=== PATIENT | female | born 1990 | race Caucasian/White ===

== ENCOUNTER 2017-08-18 07:35 | Emergency (ER) | payer BC, MEDICAID ==
--- NOTE | 2017-08-18 07:48 | Emergency Department Record ---
History of Present Illness - General Chief complaint: Lower Extremity Pain Stated complaint: RIGHT LEG BLOOD CLOT Time Seen by Provider: 08/18/17 07:42 Source: Patient Mode of Arrival: Ambulatory Limitations: No limitations - History of Present Illness Initial comments: 27 yo female presents with RLE pain and swelling. The patient states she has a known DVT. She states she was diagnosed with a DVT about 2 months ago. She is on Xarelto. No chest pain, shortness of breath, or cough. No known history of PE. PCP is Dr Terri Turk. She did see a kennel supervisor in the office (Dr Figueroa). Testing for clotting disorders have been negative to this point in time. She was initially on Eliquis but was changed to Xarelto due to side effects of confusion and trouble concentrating. She reports her concerns today are that the leg is not improving. She thinks she was on control at the time of the original DVT diagnosis but stopped the medication. She is not a smoker. Onset/Timin -: Month(s) (2) Location: Right, Lower Leg History of Same: Yes Severity scale (1-10): 5 Quality: Aching Consistency: Constant Improves with: Nothing Worsens with: Nothing Associated Symptoms: Denies other symptoms - Related Data Home Medications Medication Instructions Recorded Confirmed Last Taken Rivaroxaban [Xarelto] 20 mg PO DAILY 08/18/17 08/18/17 Unknown Allergies Allergy/AdvReac Type Severity Reaction Status Date / Time ethinyl estradiol Allergy Intermediate HYPERSENSIT Verified 08/18/17 07:43 [From Sprintec (28)] IVITY norgestimate Allergy Intermediate HYPERSENSIT Verified 08/18/17 07:43 [From Sprintec (28)] IVITY Travel Screening - Travel/Exposure Within Last 30 Days Have you traveled within the last 30 days?: No Review of Systems Constitutional: Denies: Chills, Fever, Malaise, Weakness Eyes: Denies: Eye discharge ENT: Denies: Congestion, Throat pain Respiratory: Denies: Cough Cardiovascular: Denies: Chest pain, Palpitations, Syncope Endocrine: Denies: Fatigue Gastrointestinal: Denies: Abdominal pain, Diarrhea, Nausea, Vomiting Genitourinary: Denies: Dyspareunia, Dysuria, Urgency Musculoskeletal: Reports: As per HPI, Myalgia. Denies: Arthralgia, Back pain, Joint swelling Skin: Denies: Bruising, Change in color, Rash Neurological: Denies: Headache, Numbness, Weakness Psychiatric: Denies: Anxiety Hematological/Lymphatic: Reports: Blood Clots. Denies: Easy bleeding, Easy bruising Past Medical History - SOCIAL HISTORY Smoking Status: Never smoker Alcohol Use: None Drug Use: None - RESPIRATORY Hx Respiratory Disorders: No - CARDIOVASCULAR Hx Cardio Disorders: Yes Hx Deep Vein Thrombosis: Yes (right lower leg.) Comment:: bilateral PE's - NEURO Hx Neuro Disorders: No - GI Hx GI Disorders: No - Hx Genitourinary Disorders: No - ENDOCRINE Hx Endocrine Disorders: No - MUSCULOSKELETAL Hx Musculoskeletal Disorders: No - PSYCH Hx Psych Problems: Yes Comment:: ADD/ADHD - HEMATOLOGY/ONCOLOGY Hx Hematology/Oncology Disorders: No Family Medical History Any Significant Family History?: Yes Hx Cancer: Grandparents Hx Diabetes: Grandparents Hx HTN: Mother, Grandparents Physical Exam - General General Appearance: Alert, Oriented x3, Cooperative, No acute distress Limitations: No limitations - Head Head exam: Atraumatic, Normal inspection - Eye Eye exam: Normal appearance. negative: Conjunctival injection, Scleral icterus - ENT ENT exam: Normal exam Ear exam: Normal external inspection Nasal Exam: Normal inspection Mouth exam: Normal external inspection - Neck Neck exam: Normal inspection - Respiratory Respiratory exam: Normal lung sounds bilaterally. negative: Respiratory distress - Cardiovascular Cardiovascular Exam: Regular rate, Normal rhythm, Normal heart sounds Peripheral Pulses: 2+: Radial (R), Radial (L) - Rectal Rectal exam: Deferred - exam: Deferred - Extremities Extremities exam: Calf tenderness, Full ROM, Normal capillary refill, Pedal edema (Right calf mild swelling, mild tenderness, brisk CR, full ROM, no abnormal warmth or redness, +2 DP pulses). negative: Normal inspection - Back Back exam: Reports: Normal inspection, Full ROM. Denies: Muscle spasm, Rash noted, Tenderness - Neurological Neurological exam: Alert, Normal gait, Oriented X3, Reflexes normal - Psychiatric Psychiatric exam: Normal affect, Normal mood. negative: Agitated, Anxious - Skin Skin exam: Dry, Intact, Normal color, Warm. negative: Cyanosis, Diaphoretic, Erythema, Mottled Course Vital Signs 08/18/17 07:38 Temperature 98.0 F Pulse Rate 80 Respiratory 18 Rate Blood Pressure 126/90 Pulse Ox 99 - Reevaluation(s) Reevaluation #1: EMR reviewed at [facility]. No current information on her DVT. [facility] [place] will be contacted as the patient thinks she might of had tests there. 08/18/17 07:48 08/18/17 08:16 [facility] was contacted. No records of visit or admission [facility] reviewed. No records of US or admissions [facility] records confirm a May admission. Records requested. 08/18/17 08:22 Venous doppler reviewed from 06/24/17 REIV chronic non occluding, RCFV Chronic non occluding, RDFV + RSFV Proximal chronic non occluding. RSFV Distal + Popliteal + RPTV + RPV + R gastrocnemius acute occluding. 08/18/17 08:41 No acute changes on the CBC,BMP The HCG is negative 08/18/17 09:38 The venous doppler report was reviewed. No new DVT. The study today compared to the report from 06/24/17 was unchanged without extension. 08/18/17 09:49 I SW the patient's PCP Dr Turk. We reviewed the results. No new acute DVT or extension. The findings are chronic. The patient will restart her compression hose that she had stopped. Dr Turk will see her in the office this week for a recheck. She will evaluate for possible outpatient vascular surgery referral as well for likely chronic venous insufficiency from her chronic DVT. Continue Xarelto. No clinical findings to suggest PE. NO tachycardia, hypoxia, cough, shortness of breath, chest pain. 08/18/17 10:33 Off work today and tomorrow to avoid prolonged standing that is required at her job Medical Decision Making - Lab Data Result diagrams: 08/18/17 07:55 08/18/17 07:55 Disposition Disposition: Discharge Clinical Impression: Venous insufficiency DVT (deep venous thrombosis) Qualifiers: DVT location: lower extremity Affected thrombotic vein of extremity: unspecified vein of extremity Chronicity: chronic Laterality: right Qualified Code(s): I82.501 - Chronic embolism and thrombosis of unspecified deep veins of right lower extremity Disposition: Home, Self-Care Condition: (1) Good Instructions: Leg Edema (ED), Deep Vein Thrombosis Prevention (ED) Additional Instructions: Restart using your compression hose to help with the swelling Call today to see Dr Turk in the office this week to recheck your swelling Continue your Xarelto the same as you have been taking it Forms: Patient Portal Access Time of Disposition: 09:53 Quality - Quality Measures Quality Measures: N/A - Blood Pressure Screening Does Patient Have Any of the Following: No Blood Pressure Classification: Normal BP Reading Systolic Measurement: 112 Diastolic Measurement: 78 Screening for High Blood Pressure: < Normal BP, F/U Not Required > [G8783] Pre-Hypertensive Follow-up Interventions: Referral to alternative/primary care provider.
[2017-08-18 08:07] LABS: BASO % 0.3 % (0-6); EOS % 1.9 % (0-6); GRAN % 63.1 % (47-80); HEMATOCRIT 43.8 % (35.0-47.0); HEMOGLOBIN 14.1 gm/dl (11.6-16.0); LYMPH % 26.8 % (16-45); MEAN CELL VOLUME 87.4 fl (81-97); MEAN CORPUSCULAR HEMOGLOBIN 28.1 pg (27-33); MEAN CORPUSCULAR HGB CONC 32.2 g/dl (32-36); MEAN PLATELET VOLUME 9.8 fl (7.4-10.4); MONO % 7.9 % (0-9); PLATELET COUNT 305 K/uL (130-400); RED BLOOD COUNT 5.01 M/uL (3.80-5.40); RED CELL DISTRIBUTION WIDTH 13.7 % (11.5-14.5); WHITE BLOOD COUNT W/O DIFF 6.7 K/uL (4.2-12.2)
[2017-08-18 08:17] LABS: INR 0.9; PARTIAL THROMBOPLASTIN TIME 23.8 SECONDS (24.5-39.1); PROTHROMBIN TIME (PATIENT) 10.2 SECONDS (9.5-12.1)
[2017-08-18 08:19] LABS: BLOOD UREA NITROGEN 14 mg/dL (6-20); CREATININE 0.7 mg/dL (0.5-0.9); EST GLOMERULAR FILTRATION RATE > 60 mL/min
[2017-08-18 08:22] LABS: GLUCOSE,RANDOM 107 mg/dL (74-109)
--- NOTE | 2017-08-18 13:19 | US VENOUS DOPPLER REPORT ---
EXAM: RIGHT LOWER EXTREMITY DUPLEX VENOUS ULTRASOUND HISTORY: CHRONIC PAIN. TECHNIQUE: Transverse and longitudinal sonographic images of the right lower extremity deep venous system were obtained. Comparison: Comparison is made with an outside ultrasound report dated . FINDINGS: Visible thrombus formation throughout the right lower extremity deep venous system, with lack of normal compression and augmentation consistent with DVT. Similar findings were described previously. Partial visualization of thrombus formation in the common femoral vein as well. Doppler and spectral analysis with color flow is utilized. Lack of normal waveforms. IMPRESSION: SIMILAR TO THE PREVIOUSLY DESCRIBED REPORT, THERE IS DIFFUSE RIGHT LOWER EXTREMITY DVT. JOB NUMBER: [id number] [facility]
== END 2017-08-18 10:11 | disposition home or self-care (01) ==
LOC: ER 07:35
DX: I82.501 Chronic embolism and thrombosis of unspecified deep veins of right lower extremity (principal); I87.2 Venous insufficiency (chronic) (peripheral); Z79.01 Long term (current) use of anticoagulants
CPT/HCPCS: 80048; 84703; 85025; 85610; 85730; 99283; 99284

== ENCOUNTER 2017-12-22 15:51 | Emergency (ER) | payer BC ==
[2017-12-22] MEDS ORDERED: ACETAMINOPHEN 500 MG TABLET PO ONE (16:00)
--- NOTE | 2017-12-22 16:03 | Emergency Department Record ---
History of Present Illness - General Stated complaint: LT FOOT TOE PAIN Time Seen by Provider: 12/22/17 15:56 Source: Patient Mode of Arrival: Ambulatory Limitations: No limitations - History of Present Illness Initial comments: 27 yo female presents with left foot pain. In the dark early this morning she accidentally kicked a wall. She has left 4th toe and foot pain. She has local bruising. Nail intact. Skin intact. MD Complaint: Joint pain -: Hour(s) (8) Location: Foot -: Yes Arthralgia Radiation: Distal Quality: Aching Consistency: Constant Improves with: Immobilization Worsens with: Palpation, Rest, Walking Associated Symptoms: Denies other symptoms - Related Data Allergies Allergy/AdvReac Type Severity Reaction Status Date / Time ethinyl estradiol Allergy Intermediate HYPERSENSIT Verified 08/18/17 07:43 [From Sprintec (28)] IVITY norgestimate Allergy Intermediate HYPERSENSIT Verified 08/18/17 07:43 [From Sprintec ()] IVITY Review of Systems Constitutional: Denies: Chills, Fever, Malaise, Weakness Eyes: Denies: Eye discharge ENT: Denies: Congestion, Throat pain Respiratory: Denies: Cough Cardiovascular: Denies: Chest pain Endocrine: Denies: Fatigue Gastrointestinal: Denies: Abdominal pain, Diarrhea, Nausea, Vomiting Genitourinary: Denies: Dysuria, Urgency Musculoskeletal: Reports: As per HPI, Arthralgia Skin: Reports: As per HPI, Bruising Neurological: Denies: Headache Psychiatric: Denies: Anxiety Hematological/Lymphatic: Reports: Blood Clots, Easy bleeding. Denies: Easy bruising Past Medical History - SOCIAL HISTORY Smoking Status: Never smoker Drug Use: None - RESPIRATORY Hx Respiratory Disorders: No - CARDIOVASCULAR Hx Cardio Disorders: Yes Hx Deep Vein Thrombosis: Yes (right lower leg.) Comment:: bilateral PE's - NEURO Hx Neuro Disorders: No - GI Hx GI Disorders: No - Hx Genitourinary Disorders: No - ENDOCRINE Hx Endocrine Disorders: No - MUSCULOSKELETAL Hx Musculoskeletal Disorders: No - PSYCH Hx Psych Problems: Yes Comment:: ADD/ADHD - HEMATOLOGY/ONCOLOGY Hx Hematology/Oncology Disorders: No Family Medical History Hx Cancer: Grandparents Hx Diabetes: Grandparents Hx HTN: Mother, Grandparents Physical Exam - General General Appearance: Alert, Oriented x3, Cooperative, No acute distress Limitations: No limitations - Head Head exam: Atraumatic, Normal inspection - Eye Eye exam: Normal appearance, Conjunctival injection - ENT ENT exam: Normal exam Ear exam: Normal external inspection Nasal Exam: Normal inspection Mouth exam: Normal external inspection - Neck Neck exam: Normal inspection - Respiratory Respiratory exam: Normal lung sounds bilaterally. negative: Respiratory distress - Cardiovascular Cardiovascular Exam: Regular rate, Normal rhythm, Normal heart sounds Peripheral Pulses: 2+: Dorsalis Pedis (L) - Rectal Rectal exam: Deferred - exam: Deferred - Extremities Extremities exam: Joint swelling, Normal capillary refill, Tenderness. negative : Calf tenderness, Pedal edema Image of Feet: 1 - bruising, tenderness, normal alignment, intact nail. - Back Back exam: Reports: Full ROM - Neurological Neurological exam: Alert, Oriented X3 - Psychiatric Psychiatric exam: Normal affect, Normal mood - Skin Skin exam: Dry, Intact, Normal color, Warm Course - Reevaluation(s) Reevaluation #1: The prelim toe XR was reviewed. No acute fracture or dislocation 12/22/17 16:30 12/22/17 16:45 Final XR read was negative for acute process Disposition Disposition: Discharge Clinical Impression: Contusion of foot, left Disposition: Home, Self-Care Condition: (1) Good Instructions: Foot Contusion (ED) Additional Instructions: Keep the foot elevated as much as possible Apply ice for 15 minutes 3-4 times daily. Use a wash cloth to prevent direct contact of the ice on the skin Recheck the foot with your doctor in one week if the pain continues Time of Disposition: 16:46 Quality - Quality Measures Quality Measures: N/A - Blood Pressure Screening Does Patient Have Any of the Following: No Blood Pressure Classification: Normal BP Reading Systolic Measurement: 99 Diastolic Measurement: 64 Screening for High Blood Pressure: < Normal BP, F/U Not Required > [G8783]
== END 2017-12-22 16:54 | disposition home or self-care (01) ==
LOC: ER 15:51
DX: S90.122A Contusion of left lesser toe(s) without damage to nail, initial encounter (principal); S90.32XA Contusion of left foot, initial encounter; W22.01XA Walked into wall, initial encounter; Y92.009 Unspecified place in unspecified non-institutional (private) residence as the place of occurrence of the external cause
CPT/HCPCS: 99283

== ENCOUNTER 2018-02-16 00:29 | Emergency (ER) | payer BC, MEDICAID ==
--- NOTE | 2018-02-16 00:41 | Emergency Department Record ---
History of Present Illness - General Chief complaint: Flu Like Symptoms Stated complaint: FLU LIKE SYMPTOMS Time Seen by Provider: 02/16/18 00:31 Source: Patient Mode of Arrival: Ambulatory Limitations: No limitations - History of Present Illness Initial comments: 27 yo female presents to ED for evaluation of cough and congestion symptoms for the past 2 days. Patient reports recent fever (100) yesterdya, has been taking Tylenol at home for her symptoms. Patient denies health problems at her baseline. MD Complaint: Generalized weakness Onset/Timin -: Days(s) Location: Generalized Severity: Moderate Consistency: Constant Improves with: None Worsens with: None Context: Recent illness Associated Symptoms: Denies other symptoms - [place] Coma Scale Eye Response: (4) Open spontaneously Motor Response: (6) Obeys commands Verbal Response: (5) Oriented [place] Total: 15 - Related Data Allergies Allergy/AdvReac Type Severity Reaction Status Date / Time ethinyl estradiol Allergy Intermediate HYPERSENSIT Verified 08/18/17 07:43 [From Sprintec (28)] IVITY norgestimate Allergy Intermediate HYPERSENSIT Verified 08/18/17 07:43 [From Sprintec (28)] IVITY Review of Systems Constitutional: Reports: Fever, Malaise. Denies: Chills, Night sweats Eyes: Denies: Eye discharge, Eye pain ENT: Reports: Congestion. Denies: Ear pain, Epistaxis Respiratory: Reports: Cough. Denies: Dyspnea Cardiovascular: Denies: Chest pain, Dyspnea on exertion Endocrine: Reports: Fatigue. Denies: Heat or cold intolerance Gastrointestinal: Denies: Abdominal pain, Nausea, Vomiting Genitourinary: Denies: Incontinence, Retention Musculoskeletal: Denies: Arthralgia, Back pain Skin: Denies: Bruising, Change in color Neurological: Denies: Abnormal gait, Confusion, Headache, Seizure Psychiatric: Denies: Anxiety Hematological/Lymphatic: Denies: Anemia, Blood Clots Past Medical History - SOCIAL HISTORY Smoking Status: Never smoker Drug Use: None - RESPIRATORY Hx Respiratory Disorders: No - CARDIOVASCULAR Hx Cardio Disorders: Yes Hx Deep Vein Thrombosis: Yes (right lower leg.) Comment:: bilateral PE's - NEURO Hx Neuro Disorders: No - GI Hx GI Disorders: No - Hx Genitourinary Disorders: No - ENDOCRINE Hx Endocrine Disorders: No - MUSCULOSKELETAL Hx Musculoskeletal Disorders: No - PSYCH Hx Psych Problems: Yes Comment:: ADD/ADHD - HEMATOLOGY/ONCOLOGY Hx Hematology/Oncology Disorders: No Family Medical History Hx Cancer: Grandparents Hx Diabetes: Grandparents Hx HTN: Mother, Grandparents Physical Exam - General General Appearance: Alert, Oriented x3, Cooperative, Mild distress Limitations: No limitations - Head Head exam: Atraumatic, Normocephalic, Normal inspection Head exam detail: negative: Abrasion, Contusion, Hyatt's sign, General tenderness, Hematoma, Laceration - Eye Eye exam: Normal appearance. negative: Conjunctival injection, Periorbital swelling, Periorbital tenderness, Scleral icterus - ENT Ear exam: negative: Auricular hematoma, Auricular trauma Nasal Exam: negative: Active bleeding, Discharge, Dried blood, Foreign body Mouth exam: negative: Drooling, Laceration, Muffled voice, Tongue elevation - Neck Neck exam: Normal inspection. negative: Meningismus, Tenderness - Respiratory Respiratory exam: Normal lung sounds bilaterally. negative: Rales, Respiratory distress, Rhonchi, Stridor - Cardiovascular Cardiovascular Exam: Regular rate, Normal rhythm, Normal heart sounds - GI/Abdominal GI/Abdominal exam: Soft. negative: Rebound, Rigid, Tenderness - Rectal Rectal exam: Deferred - exam: Deferred - Extremities Extremities exam: Normal inspection. negative: Calf tenderness, Pedal edema, Tenderness - Back Back exam: Denies: CVA tenderness (R), CVA tenderness (L) - Neurological Neurological exam: Alert, Normal gait, Oriented X3 - Psychiatric Psychiatric exam: Normal affect, Normal mood - Skin Skin exam: Normal color. negative: Abrasion Type of lesion: negative: abrasion Course Vital Signs 02/16/18 00:35 Temperature 98.3 F Pulse Rate [ 93 H Pulse Ox Probe] Respiratory 24 Rate Blood Pressure 128/93 [Left Arm] Pulse Ox 99 - Reevaluation(s) Reevaluation #1: 02/16/18 00:54 Influenza: Negative CXR: No acute process Patient was updated on all results, all questions were answered at the time of discharge. Patient appears stable for discharge with symptomatic care. Disposition Disposition: Discharge Clinical Impression: Viral syndrome Disposition: Home, Self-Care Condition: (2) Stable Instructions: Viral Syndrome (ED) Additional Instructions: Return to ED if your symptoms worsen or if you have any concerns. Tylenol/Motrin as directed. Follow-up with your family doctor in 3-5 days as directed. Forms: Patient Portal Access Time of Disposition: 00:58 Quality - Quality Measures Quality Measures: N/A - Blood Pressure Screening Does Patient Have Any of the Following: No Blood Pressure Classification: Hypertensive Reading Systolic Measurement: 128 Diastolic Measurement: 93 Screening for High Blood Pressure: < First Hypertensive BP, F/U Documented > [ G8950] First Hypertensive Follow-up Interventions: Referral to alternative/primary care provider.
[2018-02-16 00:52] LABS: INFLUENZA A NEGATIVE (NEGATIVE); INFLUENZA B NEGATIVE (NEGATIVE)
--- NOTE | 2018-02-18 12:43 | RADIOLOGY REPORT ---
EXAM: CHEST, TWO VIEWS HISTORY: CHEST PAIN. TECHNIQUE: PA and lateral views of the chest were obtained. Comparison: Chest radiograph 04/01/16. FINDINGS: The cardiac silhouette is within normal size limits. Relatively low inspiratory lung volumes result in slight accentuation of the pulmonary vasculature. No focal pulmonary consolidation. No pleural effusion or pneumothorax. IMPRESSION: NO DEFINITE ACUTE LUNG FINDINGS. JOB NUMBER: [id number] [facility]
== END 2018-02-16 01:06 | disposition home or self-care (01) ==
LOC: ER 00:29
DX: B34.9 Viral infection, unspecified (principal); R05 Cough; R53.1 Weakness
CPT/HCPCS: 71046; 87400; 99283

== ENCOUNTER 2018-05-22 13:33 | Emergency (ER) | payer BC, MEDICAID ==
[2018-05-22] MEDS ORDERED: ONDANSETRON 4 MG ODT TABLET SL ONE (13:55)
--- NOTE | 2018-05-22 14:01 | Emergency Department Record ---
History of Present Illness - General Chief Complaint: Dizziness Stated Complaint: EAR PAIN AND DIZZY Time Seen by Provider: 05/22/18 13:47 Source: Patient Mode of Arrival: Ambulatory Limitations: No limitations - History of Present Illness Initial Comments: The patient woke up this AM feeling "dizzy" like the room is spinning when she moves her head. She has had some ear discomfort and loose stools with mild nasal congestion. The patient denies any fever, ALEMAN, ST, cough, or SOB. The dizziness is described as feeling off balance when it gets bad. She has had mild nausea at times also. The patient presently denies any significant dizziness and has had no weakness, visual changes or vomiting. MD Complaint: Dizziness Onset/Timin -: Hour(s) Timing: Awoke with symptoms Description: Difficulty walking, Lightheadedness, Nausea, Off-balance, "Room spinning" History of Same: No History of Trauma: No Improves With: Rest Worsens With: Movement - [place] Coma Scale Eye Response: (4) Open spontaneously Motor Response: (6) Obeys commands Verbal Response: (5) Oriented Yoselyn Total: 15 - Related Data Previous Rx's Medication Instructions Recorded Ondansetron [Zofran Odt] 4 mg SL .Q4-6H PRN #12 tab.rapdis 05/22/18 Allergies Allergy/AdvReac Type Severity Reaction Status Date / Time ethinyl estradiol Allergy Intermediate HYPERSENSIT Verified 05/22/18 13:58 [From Sprintec (28)] IVITY norgestimate Allergy Intermediate HYPERSENSIT Verified 05/22/18 13:58 [From Sprintec (28)] IVITY Travel Screening - Travel/Exposure Within Last 30 Days Have you traveled within the last 30 days?: No - Travel/Exposure Within Last Year Have you traveled outside the [place] in the last year?: No - Additonal Travel Details Have you been exposed to anyone with a communicable illness?: No Review of Systems Constitutional: Denies: Chills, Fever Eyes: Denies: Eye discharge ENT: Reports: Congestion Respiratory: Denies: Cough, Dyspnea Cardiovascular: Denies: Arrhythmia Past Medical History - SOCIAL HISTORY Smoking Status: Never smoker Alcohol Use: None Drug Use: None - RESPIRATORY Hx Respiratory Disorders: No - CARDIOVASCULAR Hx Cardio Disorders: Yes Hx Deep Vein Thrombosis: Yes (right lower leg.) Comment:: bilateral PE's - NEURO Hx Neuro Disorders: No - GI Hx GI Disorders: No - Hx Genitourinary Disorders: No - ENDOCRINE Hx Endocrine Disorders: No - MUSCULOSKELETAL Hx Musculoskeletal Disorders: No - PSYCH Hx Psych Problems: Yes Hx Depression: Yes Comment:: ADD/ADHD - HEMATOLOGY/ONCOLOGY Hx Hematology/Oncology Disorders: No Family Medical History Any Significant Family History?: Yes Hx Cancer: Grandparents Hx Diabetes: Grandparents Hx HTN: Mother, Grandparents Physical Exam - General General Appearance: Alert, Oriented x3, Cooperative, No acute distress - Head Head exam: Atraumatic, Normocephalic, Normal inspection - Eye Eye exam: Normal appearance, PERRL, EOMI, Nystagmus (to the R mainly.) - ENT ENT exam: Normal exam, Mucous membranes moist, Normal external ear exam, Normal orophraynx, TM's normal bilaterally Throat exam: Normal inspection. negative: Tonsillar erythema, Tonsillar exudate - Neck Neck exam: Normal inspection, Full ROM. negative: Lymphadenopathy, Tenderness - Respiratory Respiratory exam: Normal lung sounds bilaterally. negative: Respiratory distress - Cardiovascular Cardiovascular Exam: Regular rate, Normal rhythm, Normal heart sounds. negative : Diastolic murmur, Systolic murmur - GI/Abdominal GI/Abdominal exam: Soft, Normal bowel sounds. negative: Tenderness - Extremities Extremities exam: Normal inspection, Full ROM, Normal capillary refill. negative: Tenderness - Neurological Neurological exam: Alert, CN II-XII intact, Normal gait, Oriented X3, Other ( Neg Drift and [place].). negative: Abnormal gait, Altered, Motor sensory deficit - Psychiatric Psychiatric exam: negative: Anxious - Skin Skin exam: negative: Rash Course Vital Signs 05/22/18 13:39 Temperature 97.9 F Pulse Rate 71 Respiratory 20 Rate Blood Pressure 136/91 Pulse Ox 97 - Reevaluation(s) Reevaluation #1: The patient is feeling better after the Zofran and is drinking fluids well. I did discuss the neg HCG with the patient and the need for F/U if not better. 05/22/18 14:21 Medical Decision Making - Data Complexity MDM Data: Labs Ordered and/or Reviewed (UCG: Neg.) Disposition Disposition: Discharge Clinical Impression: Acute viral syndrome Disposition: Home, Self-Care Condition: (2) Stable Instructions: Dizziness (ED) Additional Instructions: Please take your home Antivert as directed and use the Zofran for nausea. Please use Tylenol for body aches and see your family doctor next week if not better. Return to the ER for any worsening symptoms. Prescriptions: Ondansetron [Zofran Odt] 4 mg SL .Q4-6H PRN #12 tab.rapdis PRN Reason: Nausea Forms: Patient Portal Access Time of Disposition: 14:23 Quality - Quality Measures Quality Measures: N/A - Blood Pressure Screening View Details: Yes Does Patient Have Any of the Following: No Blood Pressure Classification: Hypertensive Reading Systolic Measurement: 136 Diastolic Measurement: 91 Screening for High Blood Pressure: < First Hypertensive BP, F/U Documented > [ G8950] First Hypertensive Follow-up Interventions: Referral to alternative/primary care provider.
== END 2018-05-22 14:33 | disposition home or self-care (01) ==
LOC: ER 13:33
DX: B34.9 Viral infection, unspecified (principal); R42 Dizziness and giddiness; R11.0 Nausea; R19.7 Diarrhea, unspecified
CPT/HCPCS: 81025; 99283

== ENCOUNTER 2018-08-24 13:08 | Emergency (ER) | payer MEDICAID ==
--- NOTE | 2018-08-24 13:18 | Emergency Department Record ---
History of Present Illness - General Chief complaint: ENT Stated complaint: sore throat Time Seen by Provider: 08/24/18 13:12 Source: Patient Mode of Arrival: Ambulatory Limitations: No limitations - History of Present Illness Initial comments: 28 yo female presents with a sore throat for one week. It hurts more on the left than right. She is up to date on immunizations. She still has tonsils. No fever. She has pain with swallowing. Mild cough. No ear pain. No redness to the skin. No headaches. MD complaint: Sore throat -: Week(s) (1) Location: Throat Severity: Moderate Quality: Aching Consistency: Constant Improves with: None Worsens with: Swallowing Associated Symptoms: Cough, Sore throat - Related Data Previous Rx's Medication Instructions Recorded Amoxicillin 500Mg Capsule [Amoxil] 500 mg PO TID #30 tab 08/24/18 Allergies Allergy/AdvReac Type Severity Reaction Status Date / Time ethinyl estradiol Allergy Intermediate HYPERSENSIT Unverified 08/16/18 10:41 [From Sprintec (28)] IVITY norgestimate Allergy Intermediate HYPERSENSIT Unverified 08/16/18 10:41 [From Sprintec (28)] IVITY Review of Systems Constitutional: Denies: Chills, Fever, Malaise, Night sweats, Weakness Eyes: Denies: Eye discharge ENT: Reports: Congestion, Throat pain. Denies: Dental pain, Ear pain, Epistaxis Respiratory: Reports: Cough. Denies: Dyspnea, Hemoptysis, Stridor, Wheezes Cardiovascular: Denies: Chest pain, Palpitations, Syncope Endocrine: Denies: Fatigue, Polydipsia, Polyuria Gastrointestinal: Denies: Abdominal pain, Diarrhea, Nausea, Vomiting Genitourinary: Denies: Discharge Musculoskeletal: Denies: Arthralgia, Back pain, Joint swelling, Myalgia Skin: Denies: Bruising, Change in color, Rash Neurological: Denies: Headache Psychiatric: Denies: Anxiety Hematological/Lymphatic: Reports: Swollen glands (Left). Denies: Easy bleeding , Easy bruising Past Medical History - SOCIAL HISTORY Smoking Status: Never smoker Drug Use: None - RESPIRATORY Hx Respiratory Disorders: No - CARDIOVASCULAR Hx Cardio Disorders: Yes Hx Deep Vein Thrombosis: Yes (right lower leg.) Comment:: bilateral PE's - NEURO Hx Neuro Disorders: No - GI Hx GI Disorders: No - Hx Genitourinary Disorders: No - ENDOCRINE Hx Endocrine Disorders: No - MUSCULOSKELETAL Hx Musculoskeletal Disorders: No - PSYCH Hx Psych Problems: Yes Hx Depression: Yes Comment:: ADD/ADHD - HEMATOLOGY/ONCOLOGY Hx Hematology/Oncology Disorders: No Family Medical History Hx Cancer: Grandparents Hx Diabetes: Grandparents Hx HTN: Mother, Grandparents Physical Exam - General General Appearance: Alert, Oriented x3, Cooperative, No acute distress Limitations: No limitations - Head Head exam: Atraumatic, Normal inspection - Eye Eye exam: Normal appearance, PERRL. negative: Conjunctival injection, Scleral icterus - ENT ENT exam: Normal exam, Mucous membranes dry, Mucous membranes moist, TM's normal bilaterally. negative: Normal orophraynx Ear exam: Normal external inspection Nasal Exam: Normal inspection Mouth exam: Normal external inspection Teeth exam: Normal inspection Throat exam: Tonsillar erythema, Tonsillomegaly, Other (tonsil erythema on the left with swelling, no abscess). negative: Normal inspection, Tonsillar exudate , R peritonsillar mass, L peritonsillar mass - Neck Neck exam: Normal inspection, Lymphadenopathy (mild left anterior cervical) - Respiratory Respiratory exam: Normal lung sounds bilaterally. negative: Accessory muscle use, Chest wall tenderness, Decreased breath sounds, Respiratory distress, Rhonchi, Stridor, Wheezes - Cardiovascular Cardiovascular Exam: Regular rate, Normal rhythm, Normal heart sounds - GI/Abdominal GI/Abdominal exam: Soft. negative: Tenderness - Rectal Rectal exam: Deferred - exam: Deferred - Extremities Extremities exam: negative: Tenderness - Neurological Neurological exam: Alert, Oriented X3 - Psychiatric Psychiatric exam: Normal affect, Normal mood - Skin Skin exam: Dry, Intact, Normal color, Warm Course - Reevaluation(s) Reevaluation #1: The examination is consistent with left sided tonsillitis without abscess 08/24/18 13:18 08/24/18 13:20 The vitals were reviewed. No acute significant abnormalities Disposition Disposition: Discharge Clinical Impression: Tonsillitis Disposition: Home, Self-Care Condition: (1) Good Instructions: Tonsillitis (ED) Additional Instructions: Call your doctor for the next available follow up appointment Return to the ER for a recheck if worse, any new concerns or questions Take the prescriptions provided as directed Review this ER visit and the tests performed with your family doctor Prescriptions: Amoxicillin 500Mg Capsule [Amoxil] 500 mg PO TID #30 tab Forms: Patient Portal Access Time of Disposition: 13:19 Quality - Quality Measures Quality Measures: N/A - Blood Pressure Screening Does Patient Have Any of the Following: No Blood Pressure Classification: Pre-Hypertensive BP Reading Systolic Measurement: 116 Diastolic Measurement: 88 Screening for High Blood Pressure: < Pre-Hypertensive BP, F/U Documented > [ G8950] Pre-Hypertensive Follow-up Interventions: Referral to alternative/primary care provider.
== END 2018-08-24 13:30 | disposition home or self-care (01) ==
LOC: ER 13:08
DX: J03.90 Acute tonsillitis, unspecified (principal)
CPT/HCPCS: 99282

== ENCOUNTER 2018-09-23 21:11 | Emergency (ER) | payer MEDICAID ==
[2018-09-23] MEDS ORDERED: IBUPROFEN 600 MG TABLET PO ONE (21:44)
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
--- NOTE | 2018-09-25 09:19 | RADIOLOGY REPORT ---
EXAM: HAND, RIGHT 3 VIEWS HISTORY: INJURY WHILE PLAYING WITH DOG, PAIN NEAR THE SMALL FINGER. TECHNIQUE: Three views of the right hand. COMPARISON: None. FINDINGS: Acute mildly comminuted fracture of the small finger metacarpal distal diaphysis approximately 1-2 mm volar displacement of the distal fragment with mild volar angulation. No additional fractures are seen. No evidence of dislocation. Soft tissue swelling in the ulnar side of the hand. IMPRESSION: ACUTE COMMINUTED MILDLY DISPLACED AND ANGULATED FRACTURE OF THE SMALL FINGER METACARPAL. JOB NUMBER: [id number] [facility]
== END 2018-09-23 22:09 | disposition home or self-care (01) ==
LOC: ER 21:11
DX: S62.336A Displaced fracture of neck of fifth metacarpal bone, right hand, initial encounter for closed fracture (principal); W22.09XA Striking against other stationary object, initial encounter; Y93.K9 Activity, other involving animal care
CPT/HCPCS: 99283

== ENCOUNTER 2018-11-09 20:01 | Emergency (ER) | payer MEDICAID ==
--- NOTE | 2018-11-09 20:17 | Emergency Department Record ---
History of Present Illness - General Chief complaint: Rash Stated complaint: RASH Time Seen by Provider: 11/09/18 20:15 Source: Patient Mode of Arrival: Ambulatory Limitations: No limitations - History of Present Illness Initial comments: 28 yo female presents to ED for evaluation of diffuse rash to the extremities for the past 1 days. Patient reports mild itching symptoms, denies fevers, chills, or recent illness. Patient denies recent ill contacts with rash symptoms. Patient denies health problems at her baseline, has not taken anything for her rash symptoms prior to evaluation. MD complaint: Rash Onset/Timin -: Days(s) Location: RUE, LLE, RLE Quality: Other (Itching) Consistency: Constant Improves with: None Worsens with: None Context: None Associated symptoms: Denies other symptoms Treatments Prior to Arrival: None - Related Data Previous Rx's Medication Instructions Recorded Ketoconazole 30 gm TP BID #1 cream..g. 11/09/18 Allergies Allergy/AdvReac Type Severity Reaction Status Date / Time ethinyl estradiol Allergy Intermediate HYPERSENSIT Unverified 09/02/18 14:00 [From Sprintec (28)] IVITY norgestimate Allergy Intermediate HYPERSENSIT Unverified 09/02/18 14:00 [From Sprintec (28)] IVITY Travel Screening - Travel/Exposure Within Last 30 Days Have you traveled within the last 30 days?: No Review of Systems Constitutional: Denies: Chills, Fever, Malaise, Night sweats Eyes: Denies: Eye discharge, Eye pain, Photophobia ENT: Denies: Congestion, Ear pain, Epistaxis Respiratory: Denies: Cough, Dyspnea Cardiovascular: Denies: Chest pain, Dyspnea on exertion Endocrine: Denies: Fatigue, Heat or cold intolerance Gastrointestinal: Denies: Abdominal pain, Nausea, Vomiting Genitourinary: Denies: Incontinence, Retention Musculoskeletal: Denies: Arthralgia, Back pain Skin: Reports: Rash. Denies: Bruising, Change in color Neurological: Denies: Abnormal gait, Confusion, Headache, Seizure Psychiatric: Denies: Anxiety Hematological/Lymphatic: Denies: Anemia, Blood Clots Past Medical History - SOCIAL HISTORY Smoking Status: Never smoker Alcohol Use: None Drug Use: None - RESPIRATORY Hx Respiratory Disorders: No - CARDIOVASCULAR Hx Cardio Disorders: Yes Hx Deep Vein Thrombosis: Yes (right lower leg.) Comment:: bilateral PE's - NEURO Hx Neuro Disorders: No - GI Hx GI Disorders: No - Hx Genitourinary Disorders: No - ENDOCRINE Hx Endocrine Disorders: No - MUSCULOSKELETAL Hx Musculoskeletal Disorders: No - PSYCH Hx Psych Problems: Yes Hx Depression: Yes Comment:: ADD/ADHD - HEMATOLOGY/ONCOLOGY Hx Hematology/Oncology Disorders: No Family Medical History Any Significant Family History?: Yes Hx Cancer: Grandparents Hx Diabetes: Grandparents Hx HTN: Mother, Grandparents Physical Exam - General General Appearance: Alert, Oriented x3, Cooperative, No acute distress Limitations: No limitations - Head Head exam: Atraumatic, Normocephalic, Normal inspection Head exam detail: negative: Abrasion, Contusion, Hyatt's sign, General tenderness, Hematoma, Laceration - Eye Eye exam: Normal appearance. negative: Conjunctival injection, Periorbital swelling, Periorbital tenderness, Scleral icterus - ENT Ear exam: negative: Auricular hematoma, Auricular trauma Nasal Exam: negative: Active bleeding, Discharge, Dried blood, Foreign body Mouth exam: negative: Drooling, Laceration, Muffled voice, Tongue elevation - Neck Neck exam: Normal inspection. negative: Meningismus, Tenderness - Respiratory Respiratory exam: Normal lung sounds bilaterally. negative: Rales, Respiratory distress, Rhonchi, Stridor - Cardiovascular Cardiovascular Exam: Regular rate, Normal rhythm, Normal heart sounds - GI/Abdominal GI/Abdominal exam: Soft. negative: Rebound, Rigid, Tenderness - Rectal Rectal exam: Deferred - exam: Deferred - Extremities Extremities exam: Normal inspection, Other (Several areas of raised, magno-like appearance to the left thigh, right/left upper extremities on examination). negative: Calf tenderness, Pedal edema, Tenderness - Back Back exam: Denies: CVA tenderness (R), CVA tenderness (L) - Neurological Neurological exam: Alert, Normal gait, Oriented X3 - Psychiatric Psychiatric exam: Normal affect, Normal mood - Skin Skin exam: Normal color. negative: Abrasion Type of lesion: negative: abrasion Course Vital Signs 11/09/18 20:03 Temperature 98.8 F Pulse Rate 79 Respiratory 20 Rate Blood Pressure 124/86 Pulse Ox 98 - Reevaluation(s) Reevaluation #1: 11/09/18 20:21 Examination appears c/w ringworm Will treat with Ketoconazole for 4 week duration. Patient appears stable for discharge at this time. Disposition Disposition: Discharge Clinical Impression: Ringworm Disposition: Home, Self-Care Condition: (2) Stable Additional Instructions: Return to ED if your symptoms worsen or if you have any concerns. Ketoconazole as directed. Follow-up with your family doctor in 3-5 days as directed. Prescriptions: Ketoconazole 30 gm TP BID #1 cream..g. Forms: Patient Portal Access Time of Disposition: 20:17 Quality - Quality Measures Quality Measures: N/A - Blood Pressure Screening Does Patient Have Any of the Following: No Blood Pressure Classification: Pre-Hypertensive BP Reading Systolic Measurement: 124 Diastolic Measurement: 86 Screening for High Blood Pressure: < Pre-Hypertensive BP, F/U Documented > [G8950] Pre-Hypertensive Follow-up Interventions: Referral to alternative/primary care provider.
== END 2018-11-09 20:49 | disposition home or self-care (01) ==
LOC: ER 20:01
DX: B35.4 Tinea corporis (principal)
CPT/HCPCS: 99282

== ENCOUNTER 2018-12-27 04:13 | Emergency (ER) | payer MEDICAID ==
[2018-12-27] MEDS ORDERED: KETOROLAC 60 MG/2 ML VIAL IM STA (04:29)
--- NOTE | 2018-12-27 04:37 | Emergency Department Record ---
History of Present Illness - General Chief Complaint: Neck Injury/Pain Stated Complaint: NECK PAIN Time Seen by Provider: 12/27/18 04:29 Source: Patient Mode of Arrival: Ambulatory Limitations: No limitations - History of Present Illness Initial Comments: 28 yo female presents to ED for evaluation of right-sided neck pain symptoms for the past 1 week. Patient denies specific injury, reports however that she was recently seen for nausea/vomiting symptoms 2 days ago. Patient denies fevers, chills, or headache symptoms. Patient reports taking Tylenol for her symptoms that has not improved her symptoms. Patient denies health problems at her baseline other than PE that she takes anticoagulation medications for. MD Complaint: Neck pain Onset/Timin -: Days(s) Place: Home Radiation: Right lateral Severity scale (1-10): 10 Quality: Other Consistency: Constant Improves With: None Worsens With: Movement of neck Context: Unknown Associated Symptoms: None Treatments Prior to Arrival: Acetaminophen Treatment Prior to Arrival Comment:: tylenol at 2230, motrin at 1300 yesterday for both - Related Data Previous Rx's Medication Instructions Recorded Ketoconazole 30 gm TP BID #1 cream..g. 11/09/18 Diazepam [Valium] 5 mg PO Q8H PRN #9 tab 12/27/18 Allergies Allergy/AdvReac Type Severity Reaction Status Date / Time ethinyl estradiol Allergy Intermediate HYPERSENSIT Verified 12/27/18 04:17 [From Sprintec (28)] IVITY norgestimate Allergy Intermediate HYPERSENSIT Verified 12/27/18 04:17 [From Sprintec (28)] IVITY Travel Screening - Travel/Exposure Within Last 30 Days Have you traveled within the last 30 days?: No - Travel/Exposure Within Last Year Have you traveled outside the [place] in the last year?: No - Additonal Travel Details Have you been exposed to anyone with a communicable illness?: No - Travel Symptoms Symptom Screening: None Review of Systems Constitutional: Denies: Chills, Fever, Malaise, Night sweats Eyes: Denies: Eye discharge, Eye pain ENT: Denies: Congestion, Ear pain, Epistaxis Respiratory: Denies: Cough, Dyspnea Cardiovascular: Denies: Chest pain, Dyspnea on exertion Endocrine: Denies: Fatigue, Heat or cold intolerance Gastrointestinal: Denies: Abdominal pain, Nausea, Vomiting Genitourinary: Denies: Incontinence, Retention Musculoskeletal: Reports: Neck pain. Denies: Arthralgia, Back pain Skin: Denies: Bruising, Change in color Neurological: Denies: Abnormal gait, Confusion, Seizure Psychiatric: Denies: Anxiety Hematological/Lymphatic: Denies: Anemia, Blood Clots Past Medical History - SOCIAL HISTORY Smoking Status: Never smoker Alcohol Use: None Drug Use: None - RESPIRATORY Hx Respiratory Disorders: No - CARDIOVASCULAR Hx Cardio Disorders: Yes Hx Deep Vein Thrombosis: Yes (right lower leg.) Comment:: bilateral PE's - NEURO Hx Neuro Disorders: No - GI Hx GI Disorders: No - Hx Genitourinary Disorders: No - ENDOCRINE Hx Endocrine Disorders: No - MUSCULOSKELETAL Hx Musculoskeletal Disorders: No - PSYCH Hx Psych Problems: Yes Hx Depression: Yes Comment:: ADD/ADHD - HEMATOLOGY/ONCOLOGY Hx Hematology/Oncology Disorders: No Family Medical History Any Significant Family History?: No Hx Cancer: Grandparents Hx Diabetes: Grandparents Hx HTN: Mother, Grandparents Physical Exam - General General Appearance: Alert, Oriented x3, Cooperative, Mild distress Limitations: No limitations - Head Head exam: Atraumatic, Normocephalic, Normal inspection Head exam detail: negative: Abrasion, Contusion, Hyatt's sign, General tenderness, Hematoma, Laceration - Eye Eye exam: Normal appearance. negative: Conjunctival injection, Periorbital swelling, Periorbital tenderness, Scleral icterus - ENT Ear exam: negative: Auricular hematoma, Auricular trauma Nasal Exam: negative: Active bleeding, Discharge, Dried blood, Foreign body Mouth exam: negative: Drooling, Laceration, Muffled voice, Tongue elevation - Neck Neck exam: Tenderness (TTP along the right paravertebral muscles on examination). negative: Meningismus - Respiratory Respiratory exam: Normal lung sounds bilaterally. negative: Rales, Respiratory distress, Rhonchi, Stridor - Cardiovascular Cardiovascular Exam: Regular rate, Normal rhythm, Normal heart sounds - GI/Abdominal GI/Abdominal exam: Soft. negative: Rebound, Rigid, Tenderness - Rectal Rectal exam: Deferred - exam: Deferred - Extremities Extremities exam: Normal inspection. negative: Pedal edema, Tenderness - Back Back exam: Denies: CVA tenderness (R), CVA tenderness (L) - Neurological Neurological exam: Alert, Normal gait, Oriented X3 - Psychiatric Psychiatric exam: Normal affect, Normal mood - Skin Skin exam: Normal color. negative: Abrasion Type of lesion: negative: abrasion Course Vital Signs 12/27/18 12/27/18 04:18 04:25 Temperature 97.8 F Pulse Rate 86 Respiratory 20 Rate Blood Pressure 136/96 Pulse Ox 98 - Reevaluation(s) Reevaluation #1: 12/27/18 04:35 History and examination appear c/w myofascial strain. NO midline TTP, and radiographs do not appear indicated given the history and provided and lack of trauma or injury. Patient is unable to take NSAIDs due to Xarelto use. Will prescribe Valium 5 mg as needed for her myofascial strain symptoms. Patient appears stable for discharge at this time. Disposition Disposition: Discharge Clinical Impression: Cervical strain, acute Qualifiers: Encounter type: initial encounter Qualified Code(s): S16.1XXA - Strain of muscle, fascia and tendon at neck level, initial encounter Disposition: Home, Self-Care Condition: (2) Stable Instructions: Cervical Sprain (ED) Additional Instructions: Return to ED if your symptoms worsen or if you have any concerns. Valium as directed. Follow-up with your family doctor in 3-5 days as directed. Prescriptions: Diazepam [Valium] 5 mg PO Q8H PRN #9 tab PRN Reason: Spasms Time of Disposition: 04:38 Quality - Quality Measures Quality Measures: N/A - Blood Pressure Screening Does Patient Have Any of the Following: No Blood Pressure Classification: Hypertensive Reading Systolic Measurement: 136 Diastolic Measurement: 96 Screening for High Blood Pressure: < First Hypertensive BP, F/U Documented > [G8950] First Hypertensive Follow-up Interventions: Referral to alternative/primary care provider.
[2018-12-27] MEDS ORDERED: ONDANSETRON 4 MG ODT TABLET SL ONE (04:40)
== END 2018-12-27 05:16 | disposition home or self-care (01) ==
LOC: ER 04:13
DX: S16.1XXA Strain of muscle, fascia and tendon at neck level, initial encounter (principal); X58.XXXA Exposure to other specified factors, initial encounter; Y92.009 Unspecified place in unspecified non-institutional (private) residence as the place of occurrence of the external cause; Z79.01 Long term (current) use of anticoagulants
CPT/HCPCS: 96372; 99284; J1885

== ENCOUNTER 2019-03-30 17:29 | Emergency (ER) | payer MEDICAID ==
--- NOTE | 2019-03-30 17:53 | Emergency Department Record ---
History of Present Illness - General Chief complaint: ENT Stated complaint: SORE THROAT,RONALDO Time Seen by Provider: 03/30/19 17:46 Source: Patient Mode of Arrival: Ambulatory Limitations: No limitations - History of Present Illness Initial comments: 28 yo female presents to ED for evaluation of sore throat and non-productive cough symptoms for the past 24 hours. Patient denies fevers, chills, or ear pain symptoms. Patient denies nausea, vomiting, or abdominal pain symptoms, and denies health problems at her baseline. Patient has not taken anything for her symptoms prior to arrival. MD complaint: Sore throat Onset/Timin -: Days(s) Location: Throat Severity: Moderate Quality: Aching Consistency: Constant Improves with: None Worsens with: None Associated Symptoms: Cough, Sore throat - Related Data Previous Rx's Medication Instructions Recorded Ketoconazole 30 gm TP BID #1 cream..g. 11/09/18 Diazepam [Valium] 5 mg PO Q8H PRN #9 tab 12/27/18 Allergies Allergy/AdvReac Type Severity Reaction Status Date / Time ethinyl estradiol Allergy Intermediate HYPERSENSIT Verified 03/30/19 17:40 [From Sprintec (28)] IVITY norgestimate Allergy Intermediate HYPERSENSIT Verified 03/30/19 17:40 [From Sprintec (28)] IVITY Travel Screening - Travel/Exposure Within Last 30 Days Have you traveled within the last 30 days?: No - Travel/Exposure Within Last Year Have you traveled outside the [place] in the last year?: No - Additonal Travel Details Have you been exposed to anyone with a communicable illness?: No - Travel Symptoms Symptom Screening: None Review of Systems Constitutional: Denies: Chills, Fever, Malaise, Night sweats Eyes: Denies: Eye discharge, Eye pain ENT: Reports: Congestion, Throat pain. Denies: Ear pain, Epistaxis Respiratory: Reports: Cough. Denies: Dyspnea Cardiovascular: Denies: Chest pain, Dyspnea on exertion Endocrine: Denies: Fatigue, Heat or cold intolerance Gastrointestinal: Denies: Abdominal pain, Nausea, Vomiting Genitourinary: Denies: Incontinence, Retention Musculoskeletal: Denies: Arthralgia, Back pain Skin: Denies: Bruising, Change in color Neurological: Denies: Abnormal gait, Confusion, Headache, Tingling, Tremors Psychiatric: Denies: Anxiety Hematological/Lymphatic: Denies: Anemia, Blood Clots Past Medical History - SOCIAL HISTORY Smoking Status: Never smoker Alcohol Use: None Drug Use: None - RESPIRATORY Hx Respiratory Disorders: No - CARDIOVASCULAR Hx Cardio Disorders: Yes Hx Deep Vein Thrombosis: Yes (right lower leg.) Comment:: bilateral PE's - NEURO Hx Neuro Disorders: No - GI Hx GI Disorders: No - Hx Genitourinary Disorders: No - ENDOCRINE Hx Endocrine Disorders: No - MUSCULOSKELETAL Hx Musculoskeletal Disorders: No - PSYCH Hx Psych Problems: Yes Hx Depression: Yes Comment:: ADD/ADHD - HEMATOLOGY/ONCOLOGY Hx Hematology/Oncology Disorders: No Family Medical History Any Significant Family History?: Yes Hx Cancer: Grandparents Hx Diabetes: Grandparents Hx HTN: Mother, Grandparents Physical Exam - General General Appearance: Alert, Oriented x3, Cooperative, No acute distress Limitations: No limitations - Head Head exam: Atraumatic, Normocephalic, Normal inspection Head exam detail: negative: Abrasion, Contusion, Hyatt's sign, General tenderness, Hematoma, Laceration - Eye Eye exam: Normal appearance. negative: Conjunctival injection, Periorbital swelling, Periorbital tenderness, Scleral icterus - ENT Ear exam: negative: Auricular hematoma, Auricular trauma Nasal Exam: negative: Active bleeding, Discharge, Dried blood, Foreign body Mouth exam: negative: Drooling, Laceration, Muffled voice, Tongue elevation Throat exam: Tonsillar erythema. negative: Tonsillomegaly, Tonsillar exudate, R peritonsillar mass, L peritonsillar mass - Neck Neck exam: Normal inspection. negative: Meningismus, Tenderness - Respiratory Respiratory exam: Normal lung sounds bilaterally. negative: Respiratory distress, Rhonchi, Stridor, Wheezes - Cardiovascular Cardiovascular Exam: Regular rate, Normal rhythm, Normal heart sounds - GI/Abdominal GI/Abdominal exam: Soft. negative: Distended, Rebound, Rigid, Tenderness - Rectal Rectal exam: Deferred - exam: Deferred - Extremities Extremities exam: Normal inspection. negative: Pedal edema, Tenderness - Back Back exam: Denies: CVA tenderness (R), CVA tenderness (L) - Neurological Neurological exam: Alert, Normal gait, Oriented X3 - Psychiatric Psychiatric exam: Normal affect, Normal mood - Skin Skin exam: Normal color. negative: Abrasion Type of lesion: negative: abrasion Course Vital Signs 03/30/19 17:42 Temperature 97.5 F L Pulse Rate 82 Respiratory 18 Rate Blood Pressure 127/103 Pulse Ox 97 - Reevaluation(s) Reevaluation #1: 03/30/19 18:17 Rapid strep: Negative Patient was updated on her strep results, examination appears c/w viral URI. Recommended continued symptomatic care as discussed. Patient appears stable for discharge at this time. Disposition Disposition: Discharge Clinical Impression: Viral URI Disposition: Home, Self-Care Condition: (2) Stable Instructions: Upper Respiratory Infection (ED) Additional Instructions: Return to ED if your symptoms worsen or if you have any concerns. Tylenol/Motrin as directed. Follow-up with your family doctor in 3-5 days as directed. Forms: Patient Portal Access Time of Disposition: 18:18 Quality - Quality Measures Quality Measures: N/A - Blood Pressure Screening Does Patient Have Any of the Following: No Blood Pressure Classification: Hypertensive Reading Systolic Measurement: 127 Diastolic Measurement: 103 Screening for High Blood Pressure: < First Hypertensive BP, F/U Documented > [[id number]] First Hypertensive Follow-up Interventions: Referral to alternative/primary care provider.
[2019-03-30] MEDS: DEXAMETHASONE SOD PHOSPHATE 10MG/ML VIAL PO ONE (18:24)
== END 2019-03-30 18:27 | disposition home or self-care (01) ==
LOC: ER 17:29
DX: J06.9 Acute upper respiratory infection, unspecified (principal)
CPT/HCPCS: 87880; 99282